=== PATIENT | female | born 1950 | race Caucasian/White ===

== ENCOUNTER → 2017-04-28 | Outpatient (CLI) | payer MEDICARE, OTHER | END | disposition home or self-care (01) | LOC: LABWHC1 14:49 | PROVIDERS: ATTEND Psychiatry & Neurology Psychiatry | DX: F31.9 Bipolar disorder, unspecified (principal) | CPT/HCPCS: 36415; 80164; 84450; 84460 ==

== ENCOUNTER 2017-12-21 16:12 | Emergency (ER) | payer BC, MEDICARE ==
[2017-12-21] MEDS ORDERED: EPINEPHrine 10 ML SYRINGE (0.1 MG/ML) ONE (16:13)
[2017-12-21] MEDS ORDERED: SODIUM BICARB 8.4% 50 ML SYR (1 MEQ/ML) ONE (16:13)
[2017-12-21] MEDS ORDERED: EPINEPHrine 2 MG in DEXTROSE 5% IN WATER 250 ML IV ONE ×2 (16:30)
[2017-12-21 16:33] LABS: HCT 35.3 % (34.0-46.0); HGB 11.3 gm/dL (11.4-16.0); Hypochromasia Slight; MCH 31.8 pg (25.0-35.0); MCV 99.2 fL (80.0-100.0); Mean Platelet Volume 6.9; Platelet Count 264 k/uL (150-450); RBC 3.56 m/uL (3.80-5.40); RDW 11.5 % (11.5-15.5); WBC 9.3 k/uL (3.8-10.6)
[2017-12-21 16:46] LABS: Albumin 2.5 g/dL (3.5-5.0); Calcium 7.9 mg/dL (8.4-10.2); INR 1.5 (<1.2); Potassium 4.8 mmol/L (3.5-5.1); Prothrombin Time 13.8 sec (9.0-12.0); Total Bilirubin 0.2 mg/dL (0.2-1.3); Total Protein 4.5 g/dL (6.3-8.2)
[2017-12-21 16:54] LABS: Creatine Kinase 127 U/L (30-135)
[2017-12-21 16:58] LABS: Partial Thromboplastin Time 67.5 sec (22.0-30.0)
[2017-12-21 17:05] LABS: Troponin I <0.012 ng/mL (0.000-0.034)
[2017-12-21 17:08] LABS: Creatine Kinase MB 2.5 ng/mL (0.0-2.4)
--- NOTE | 2017-12-21 19:22 | ED ---
CPR HPI - General Chief Complaint: Cardiac Arrest/CPR Stated Complaint: unresponsive Time Seen by Provider: 12/21/17 16:57 Source: EMS Mode of arrival: EMS Limitations: physical limitation - History of Present Illness Initial Comments: 67 years old female comes in family members for help and then they called the ambulance when the embolus, there they found her without any pulse or respiratory activity they continued the CPR for about 40 minutes then they noticed that she had a pulse on arrival to the ER automatic CPR machine was between the resuscitation and according to the embolus she had pulse when I went to see her in the room and just part of my exam there was no pulse was started CPR again following the ATLS protocols appendectomy was given several times him we started to open IVs, EMS had intubated the patient prior to arrival to the hospital him on examination she had no cardiac primary activity at all - Related Data Home Medications Medication Instructions Recorded Confirmed Albuterol Nebulized (Conc) 2.5 mg INHALATION PRN 02/20/14 02/20/14 [Ventolin Nebulized (Conc)] Albuterol Sulfate [Proair Hfa] 2 puff INHALATION Q4HR PRN 02/20/14 02/20/14 Budesonide/Formoterol Fumarate 2 puff INHALATION BID 02/20/14 02/20/14 [Symbicort 160-4.5 Mcg Inhaler] Cyclobenzaprine [Flexeril] 10 mg PO HS 02/20/14 02/20/14 Divalproex [Depakote] 500 mg PO DAILY 02/20/14 02/20/14 Folic Acid 1 mg PO DAILY 02/20/14 02/20/14 Hydrocodone/Acetaminophen [Vicodin 1 each PO Q4H 02/20/14 02/20/14 Es 7.5-300 mg Tablet] Hydroxychloroquine Sulfate 200 mg PO BID 02/20/14 02/20/14 [Plaquenil] Levalbuterol Hfa Inhaler [Xopenex 2 puff INHALATION Q4HR PRN 02/20/14 02/20/14 Hfa Inhaler] Levothyroxine Sodium [Synthroid] 25 mcg PO DAILY 02/20/14 02/20/14 Meloxicam [Mobic] 15 mg PO DAILY 02/20/14 02/20/14 Modafinil [Provigil] 200 mg PO DAILY 02/20/14 02/20/14 Montelukast [Singulair] 10 mg PO HS 02/20/14 02/20/14 Omeprazole [PriLOSEC] 20 mg PO AC-BRKFST 02/20/14 02/20/14 Pilocarpine HCl [Salagen] 15 mg PO BID 02/20/14 02/20/14 Venlafaxine HCl [Effexor XR] 150 mg PO DAILY 02/20/14 02/20/14 busPIRone HCL [Buspar] 30 mg PO BID 02/20/14 02/20/14 Allergies Allergy/AdvReac Type Severity Reaction Status Date / Time No Known Allergies Allergy Verified 02/20/14 14:38 Review of Systems ROS Statement: Those systems with pertinent positive or pertinent negative responses have been documented in the HPI. ROS Other: All systems not noted in ROS Statement are negative. Past Medical History Past Medical History: COPD, GERD/Reflux Additional Past Medical History / Comment(s): fibromyalgia, hypothyroid, bowel obstruction, shogrens disease, colon cancer History of Any Multi-Drug Resistant Organisms: None Reported Past Surgical History: Hysterectomy Additional Past Surgical History / Comment(s): bladder suspension Past Psychological History: Bipolar, Depression Smoking Status: Former smoker Past Alcohol Use History: None Reported Past Drug Use History: None Reported General Exam - General Exam Comments Initial Comments: On arrival she was intubated and automated machine was doing the CPR, we had a pulse for a very short time at that time, we were getting ready for the epinephrine infusion, and Lorcet Plus again she was pulled back and he was seen for the CPR, CPR was continued the CPR time was around 1 hour. Eyes were dilated they were not reactive to light and accommodation at all, heart were continued the CPR, no cardiac activity otherwise lungs noted expiratory activity except she was being bagged abdomen was distended upper or lower extremity exam is unremarkable there was no signs of any trauma there is no new fractures obvious there were no pulses pupils pale. Neuro exam she was unresponsive Limitations: physical limitation Medical Decision Making - Lab Data Result diagrams: 12/21/17 16:19 12/21/17 16:19 Lab Results 12/21/17 12/21/17 12/21/17 Range/Units 16:19 16:19 16:19 WBC 9.3 (3.8-10.6) k/uL RBC 3.56 L (3.80-5.40) m/uL Hgb 11.3 L (11.4-16.0) gm/dL Hct 35.3 (34.0-46.0) % MCV 99.2 (80.0-100.0) fL MCH 31.8 (25.0-35.0) pg MCHC 32.0 (31.0-37.0) g/dL RDW 11.5 (11.5-15.5) % Plt Count 264 (150-450) k/uL Hypochromasia Slight PT (9.0-12.0) sec INR (<1.2) APTT (22.0-30.0) sec Sodium 139 (137-145) mmol/L Potassium 4.8 (3.5-5.1) mmol/L Chloride 103 (98-107) mmol/L Carbon Dioxide 15 L (22-30) mmol/L Anion Gap 21 mmol/L BUN 15 (7-17) mg/dL Creatinine 1.09 H (0.52-1.04) mg/dL Est GFR (CKD-EPI)AfAm 61 (>60 ml/min/1.73 sqM) Est GFR (CKD-EPI)NonAf 53 (>60 ml/min/1.73 sqM) Glucose 286 H (74-99) mg/dL Calcium 7.9 L (8.4-10.2) mg/dL Total Bilirubin 0.2 (0.2-1.3) mg/dL AST 88 H (14-36) U/L ALT 64 H (9-52) U/L Alkaline Phosphatase 55 (38-126) U/L Total Creatine Kinase 127 (30-135) U/L CK-MB (CK-2) 2.5 H* (0.0-2.4) ng/mL CK-MB (CK-2) Rel Index 2.0 Troponin I <0.012 (0.000-0.034) ng/mL Total Protein 4.5 L (6.3-8.2) g/dL Albumin 2.5 L (3.5-5.0) g/dL 12/21/17 Range/Units 16:19 WBC (3.8-10.6) k/uL RBC (3.80-5.40) m/uL Hgb (11.4-16.0) gm/dL Hct (34.0-46.0) % MCV (80.0-100.0) fL MCH (25.0-35.0) pg MCHC (31.0-37.0) g/dL RDW (11.5-15.5) % Plt Count (150-450) k/uL Hypochromasia PT 13.8 H (9.0-12.0) sec INR 1.5 H (<1.2) APTT 67.5 H (22.0-30.0) sec Sodium (137-145) mmol/L Potassium (3.5-5.1) mmol/L Chloride (98-107) mmol/L Carbon Dioxide (22-30) mmol/L Anion Gap mmol/L BUN (7-17) mg/dL Creatinine (0.52-1.04) mg/dL Est GFR (CKD-EPI)AfAm (>60 ml/min/1.73 sqM) Est GFR (CKD-EPI)NonAf (>60 ml/min/1.73 sqM) Glucose (74-99) mg/dL Calcium (8.4-10.2) mg/dL Total Bilirubin (0.2-1.3) mg/dL AST (14-36) U/L ALT (9-52) U/L Alkaline Phosphatase (38-126) U/L Total Creatine Kinase (30-135) U/L CK-MB (CK-2) (0.0-2.4) ng/mL CK-MB (CK-2) Rel Index Troponin I (0.000-0.034) ng/mL Total Protein (6.3-8.2) g/dL Albumin (3.5-5.0) g/dL Critical Care Time Total Critical Care Time: 45 Critical Care Time: CPR was continuing the ER, that was done according to the ACLS protocol 2 large bore IVs were established fluids were given under the pressure bicarb name pupils were done assuming her suspecting hyperkalemia potassium IV was given with the ultrasound cardiac activity was monitored 3 times, at the end we didn' t see any cardiac activity that was recorded and the code was discontinued after discussing with the family family was made aware that he wants somebody has no pulse with this long likelihood of brain functioning normal is Possible he agreed to discontinue the code, she was pronounced please see the code sheet for the exact time she was pronounced Disposition Clinical Impression: Cardiac arrest Disposition: Referrals: Anshu Collado MD [Primary Care Provider] - 1-2 days Preliminary Cause of : After CPR was continued for about an hour patient was pronounced, CT CPR me
== END 2017-12-21 18:55 | disposition expired ==
LOC: EC 16:12
DX: I46.9 Cardiac arrest, cause unspecified (principal); J44.9 Chronic obstructive pulmonary disease, unspecified; K21.9 Gastro-esophageal reflux disease without esophagitis; M79.7 Fibromyalgia; E03.9 Hypothyroidism, unspecified; F32.9 Major depressive disorder, single episode, unspecified; Z85.038 Personal history of other malignant neoplasm of large intestine; Z87.891 Personal history of nicotine dependence; Z79.51 Long term (current) use of inhaled steroids; Z79.891 Long term (current) use of opiate analgesic; Z79.1 Long term (current) use of non-steroidal anti-inflammatories (NSAID); Z79.899 Other long term (current) drug therapy
CPT/HCPCS: 36415; 80053; 82550; 82553; 84484; 85027; 85610; 85730; 92950; 99291